=== PATIENT | female | born 1995 | race Caucasian/White ===

== ENCOUNTER 2017-04-23 09:36 | Emergency (ER) | payer BC, OTHER ==
[~2017-04-23] VITALS: Ht 165.1 cm; Wt 90.7 kg
[~2017-04-23 09:36] MED LIST: CLEOCIN HCL300 MG PO; GUAIFENESIN-CO118 ML PO; MUCINEX1200 MG PO; NORCO 5-325 TA1 EACH PO; PENICILLIN V P500 MG PO; TYLENOL WITH C1 EACH PO; ZOFRAN ODT4 MG PO; [UNRECOGNIZED DRUG - OTHER]
[2017-04-23] MEDS ORDERED: KETOROLAC TROME10 MG PO (12:20)
== END 2017-04-23 12:31 | disposition home or self-care (01) ==
LOC: ED 09:36
DX: R10.31 Right lower quadrant pain (principal)
CPT/HCPCS: 74177; 80053; 81001; 82150; 83690; 84703; 85025; 87088; 96374; 96375; 96376; 99284; J1170; J2405; Q9967

== ENCOUNTER 2017-04-23 18:54 | Observation (INO) | payer BC, OTHER ==
[~2017-04-23] VITALS: Ht 165.1 cm; Wt 90.7 kg
[~2017-04-23 18:54] MED LIST changes: +KETOROLAC TROME10 MG PO
--- NOTE | 2017-04-24 00:39 | NUR ---
REPORT RECEIVED FROM JAMSE XAVIER. PT ARRIVED TO FLOOR VIA STRETCHER, WAS ABLE TO AMBULATE TO BED. ASSESSMENT COMPLETED. ALERT/ORIENTED, REPORTS 8/10 PAIN IN RLQ, PRN TORADOL GIVEN. LUNGS CLEAR, RA. HR REGULAR. BOWEL TONES ACTIVE ON THE LEFT SIDE, MORE HYPOACTIVE ON THE RIGHT SIDE, RIGHT SIDE IS TENDER UPON PALPATION. DENIES NAUSEA AT THIS TIME. SKIN IS INTACT. IV PATENT, D5LR INFUSING AT 85 ML/HR. PT EDUCATED ON USE OF CALL LIGHT. PT GIVEN CLEAR LIQUIDS UPON ARRIVAL, BUT BECAME NPO AT MIDNIGHT, PT AWARE. PT DENIES FURTHER REQUESTS AT THIS TIME, CALL LIGHT IS WITHIN REACH.
--- NOTE | 2017-04-24 02:56 | NUR ---
PT IS SLEEPING AT THIS TIME.
--- NOTE | 2017-04-24 05:15 | NUR ---
RECEIVED REPORT AT 0045. PT HAS BEEN SLEEPING FOR THE MOST PART OF THIS SHIFT. PT HAS ACTIVE BOWEL TONES IN ALL QUADRANTS, RUQ AND RLQ ARE TENDER TO TOUCH, ALL LOBES ARE CLEAR, OVERALL ASSESSMENT WAS WDL. DURING LAST ASSESSMENT PT HAS DENIED N/V, HER PAIN LEVEL IS TOLERABLE STATED BY PT. V/S ARE WDL. PT IS HOWEVER DUE TO VOID.
--- NOTE | 2017-04-24 07:15 | NUR ---
BEDSIDE HANDOFF REPORT RECEIVED FROM SHOE COBBLER RN. PT RESTING IN BED. PT RECENTLY RECEIVED PAIN MEDICATION, RATING PAIN 7/10 NOW. IV FLUIDS INFUSING. PT DENIES NEEDS AT THSI TIME.
--- NOTE | 2017-04-24 07:47 | NUR ---
PATIENT IN BED SLEEPING. WHITEBOARD UPDATED. PUT AM CARE ITEMS IN BATHROOM FOR WHEN PATIENT WAKES UP.
--- NOTE | 2017-04-24 08:45 | NUR ---
PT RESTING IN BED. PT STATES "PAIN IS NOT THAT BAD". PT ON ROOM AIR, O2 SATS 98%, LUNG SOUNDS CLEAR. PT NPO, DENIES NAUSEA, BOWEL TONES ACTIVE. IV FLUIDS INFUSING AT 85 ML/HR. SCDS IN PLACE. PT DENIES NEEDS AT THIS TIME.
--- NOTE | 2017-04-24 11:46 | NUR ---
PATIENT DOING WELL. IN BED
--- NOTE | 2017-04-24 12:44 | NUR ---
PATIENT DOES NOT WANT TO SHOWER YET, FEELS TOO WEAK TO SHOWER.
--- NOTE | 2017-04-24 12:55 | NUR ---
PATIENT WAS SURGICALY WIPED DOWN FOR SURGERY. LINEN CHANGED
--- NOTE | 2017-04-24 13:03 | NUR ---
PT TO OR. ACCOMPANIED BY MOTHER.
--- NOTE | 2017-04-24 14:30 | NUR ---
04/24/17 1430 Wanda Barnes REPORT FROM COSTUME DRAPER.
--- NOTE | 2017-04-24 15:45 | NUR ---
PATIENT BACK FROM SURGERY. VERY SLEEPY.
--- NOTE | 2017-04-24 15:58 | NUR ---
PT RECEIVED FROM PACU. PT TRANSFERED TO BED. PT COMPLAINT OF PAIN, RATING PAIN 9/10, GIVEN 4MG IV MORPHINE. PT COMPLAINT OF NAUSEA, GIVEN 4MG IV ZOFRAN. PT ON ROOM AIR, LUNG SOUNDS CLEAR. BOWEL TONES HYPOACTIVE. ABD WITH LAP SITES X3, SMALL AMOUNT OF DRAINAGE FROM UMBILICUS, STERI STRIPS IN PLACE. IV FLUIDS INFUSING. PT DENIES OTHER NEEDS AT THIS TIME. FAMILY AT BEDSIDE.
--- NOTE | 2017-04-24 16:43 | NUR ---
PT RESTING IN BED. PT COMPLAINT OF PAIN, RATING PAIN 10/10, PT GIVEN 1 TAB PERCOCET. PT GIVEN SOUP, CRACKERS AND PUDDING. EDUCATED ON SIDE EFFECTS OF PERCOCET. ABD DRAINAGE UNCHANGED. PT DENIES OTHER NEEDS AT THIS TIME. FAMILY AT BEDSIDE.
--- NOTE | 2017-04-24 17:15 | NUR ---
PT ASSISTED TO BATHROOM, VOIDED. PT GOWN CHANGED. PT STATES PAIN IS IMPROVING, RATING PAIN 6/10. PT DENIES NAUSEA, TOLERATING REGULAR DIET. IV FLUIDS INFUSING. PT ON ROOM AIR. NO CHANGE IN DRAINAGE TO UMBILICAL SITE. PT DENIES NEEDS AT THIS TIME. FAMILY AT BEDSIDE.
--- NOTE | 2017-04-24 17:56 | NUR ---
PT WENT TO OR FOR LAPAROTOMY AND LAP APPY, RECEIVED BACK AT 1530. PT ON ROOM AIR, LUNG SOUNDS CLEAR. PT WITH LAP SITES X3, SMALL AMOUNT OF SEROSANG DRAINAGE FROM UMBILICUS, BOWEL TONES HYPOACTIVE. PT WITH NAUSEA, GIVEN 4 MG IV ZOFRAN X1, NOW TOLERATING REGULAR DIET. PT GIVEN 1 TAB PERCOCET, GOOD PAIN RELIEF. IV FLUIDS INFUSING AT 85 ML/HR. PT VOIDING QS.
--- NOTE | 2017-04-24 20:00 | NUR ---
RECEIVED REPORT AT 1900. FOUND PT IN BED WITH BOYFRIEND AT BEDSIDE. PT DENIED PAIN AND N/V AT THAT TIME.
--- NOTE | 2017-04-24 22:00 | NUR ---
V/S ARE WDL, ALL QUADRANTS HAVE NORMAL BOWEL TONES, PT IS PASSING GAS. PAIN IN WELL CONTROLLED WITH PRN PAIN MEDS AVAILABLE. INCISIONS HAVE DRIED BLOOD ON TAPE, UMBILICAL LAP SITED NEEDED A GAUZE AND PRESSURE TAPE OVER IT DUE TO SOME BLEEDING. I&O ARE ADEQUATE. ALL LOBES ARE CLEAR. PT IS WALKING. NO NEW ISSUES NOTED.
--- NOTE | 2017-04-25 00:34 | NUR ---
PT IS SLEEPING AT THIS TIME.
--- NOTE | 2017-04-25 02:45 | NUR ---
PT RECEIVED MORPHINE IV 4MG X2 SO FAR. PAIN IS WELL CONTROLLED WITH PRN PAIN MEDS AVAILABLE. PT IS PASSING GAS. ALL BOWELTONES ARE NORMALLY ACTIVE. PT IS SLEEPING AGAIN AT THIS TIME.
--- NOTE | 2017-04-25 05:48 | NUR ---
PT REPORTED 9/10 ABDOMINAL PAIN, 2 TABS PERCOCET ADMINISTERED WITH SOME CRACKERS. PT DENIES FURTHER REQUESTS AT THIS TIME. CALL LIGHT IS WITHIN REACH.
--- NOTE | 2017-04-25 05:51 | NUR ---
AT START OF SHIFT UMBILICAL LAP SITED NEEDED A DRESSING CHANGE DUE TO SOME BLEEDING. BOWEL SOUNDS ARE ACTIVE IN ALL QUADRANTS. PT IS NOW PASSING GAS. i&O IS WDL, V/S ARE WDL, PT DENIES N/V. PAIN WAS WELL CONTROLLED WITH PRN IV AND PO PAIN MEDS. PT SO FAR HAS TOLERATED A FULL LIQUID DIET. PT HAS BEEN AMBULATING IN ROOM.
--- NOTE | 2017-04-25 07:30 | NUR ---
REPORT RECEIVED FROM WILL RAMIREZ. PATIENT IS SLEEPING, RESPIRATIONS EVEN UNLABORED. IV IN THE RIGHT ARM CDI NO REDDNESS OR SWELLING NOTED. PULSE OX REMAIN ON O2 SAT ON RA 97%
--- NOTE | 2017-04-25 08:24 | NUR ---
PT AWAKE IN BED. FRESH ICE WATER. EMPTYED GARBAGE. ORDERED BREAKFAST.
--- NOTE | 2017-04-25 09:00 | NUR ---
PATIENT RESTING IN BED, SHE STATES THAT SHE DIDN'T SLEEP WELL LAST NIGHT. PATIENT HAS NO C/O PAIN AT THIS TIME. SHE IS ALERT AND ORIENTED. REGULAR BREAKFAST ORDERED FOR HER AND PATIENT DENIES OTHER NEEDS. LAP SITES CDI, UMBILICAL SITE WAS REINFORCED LAST NIGHT BY THE NIGHT NURSE DUE TO DRAINAGE, NO DRAINAGE NOTED AT THIS TIME.
--- NOTE | 2017-04-25 09:40 | NUR ---
PATIENT SAT UP IN BED TO EAT AND PAIN WITH HICCUPS WENT UP TO A 9/10 PATIENT GIVEN 2 PERCOCET PO FOR PAIN COVERAGE.
--- NOTE | 2017-04-25 09:41 | NUR ---
IV SALINE LOCKED AT THIS TIME.
--- NOTE | 2017-04-25 11:32 | NUR ---
PATIENT C/O 02/19 ABDOMINAL PAIN, PATIENT GIVEN 30MG OF TORADOL IV AT THIS TIME.
--- NOTE | 2017-04-25 12:08 | NUR ---
PT AWAKE DOING WELL TOOK VITELS AND FRESH ICE WATER AND PILLOW.
[2017-04-25] MEDS ORDERED: MOTRIN IB200 MG PO (13:40)
[2017-04-25] MEDS ORDERED: OXYCODON-ACETA1 EAC2 PO (13:41)
--- NOTE | 2017-04-25 14:22 | NUR ---
PATIENT GIVEN D/C INSTRUCTIONS, QUESTIONS ANSWERED. IV IN THE RIGHT FOREARM DC'D TIP INTACT.
--- NOTE | 2017-04-25 14:48 | NUR ---
PATIENT GIVEN 2 PERCOC[address] PO ON HER WAY OUT FOR PAIN COVERAGE ON THE WAY HOME.
--- NOTE | 2017-05-15 07:48 | OR ---
[facility] [address], [place] [address] Signed DATE OF PROCEDURE: 04/24/17 PREOPERATIVE DIAGNOSIS Persistent acute right lower abdominal pain. Normal CT scan, pelvic ultrasound, labs. POSTOPERATIVE DIAGNOSIS Normal intraabdominal examination except for appendix with soft fecalith. PROCEDURES Complete diagnostic laparoscopy. Laparoscopic appendectomy. SURGEON: Varun Breen M.D. ANESTHESIA General endotracheal (Corine Tim CRNA) and local 20 mL of 0.25% Marcaine with Epinephrine. INDICATION This 22-year-old white woman presented to the emergency room yesterday in the morning with severe right lower abdominal pain. Her lab studies were normal. A CT scan was performed and normal. She was sent home from the ER, but presented once again later in the evening where she was found to have increasing pain and some tenderness in the right lower abdomen. Her lab studies were normal including a negative beta HCG and chem profile and CBC. She is 3 weeks since her last menstrual period initially. She is usually regular with a 4-week cycle. She was admitted and underwent active observation. Examination today showed her to have continued tenderness in the right lower abdomen without mass. Her hematocrit decreased by approximately 8 points with IV hydration and so on. She had persistent pain which she considered worse than yesterday and located in the right lower quadrant. Concern was maintained on m y part she may have a ruptured hemorrhagic ovarian cyst, and on that basis, she underwent a pelvic ultrasound, as well as transvaginal ultrasound of the pelvis showing no sign of abnormality of the ovary and no excessive fluid in the pelvis. Given her per s istent symptoms of pain and tenderness and mindful of the possibility of an evolving general surgical problem, I have recommended diagnostic laparoscopy. Appendectomy would be performed whether it appeared inflamed or not under the circumstances. She and her mother understand the risks of bleeding, infection, failure of diagnosis, missed diagnosis, need for open procedure, and other unforeseen complications and wished to proceed. Electronically Signed By: VARUN BREEN MD 05/15/17 0748 PATIENT NAME: CHARI JUAN OPERATIVE REPORT DATE OF : [birth year] PHYSICIAN: VARUN BREEN MD REPORT #: [id number] REPORT IS CONFIDENTIAL AND NOT TO BE RELEASED WITHOUT AUTHORIZATION [facility] [address], [place] [address] Signed FINDINGS There is no sign of hemoperitoneum in any way. Intraabdominal inspect ion was essentially normal. The liver and gallbladder were normal as was the stomach and pyloric area. The right colon, transverse colon was normal. The small bowel was run from the ligament of Treitz to the terminal ileum and was entirely normal without a ny sign of Meckel's diverticulum, stricture, neoplasm, or other particular problem. She had no ascites. There was no carcinomatosis. The area behind the cecum was normal as well. The appendix itself was somewhat elongated but soft, only mildly injected, a nd there was a soft fecalith in the appendix. The pelvic organs were normal, including the uterus, both tubes and ovaries. There was no sign of cystic disease there. There was no sign of endometriosis. The sigmoid colon was normal. Appendectomy was perfor med and palpation of it once excised showed a soft fecalith. The appendix was opened and photographs taken of this. Appendectomy has been performed, but no other excisions undertaken. DESCRIPTION OF PROCEDURE The patient was brought to the operating room, given a general endotracheal anesthetic. A Charles catheter was placed. Preoperative antibiotic Cefoxitin was given. Sequential compression device stockings used and heparin subcutaneously administered. After Charles catheter placement, the abdomen was prepared with a Chlorhexidine solution and draped sterilely. An infraumbilical incision was made, and using an open Kimberly cannula technique, pneumoperitoneum was achieved to the level of 14 mmHg with carbon dioxide gas. Intraabdominal inspection showed no ascit es or carcinomatosis. There is no sign of blood within the pelvis or elsewhere. Examination was undertaken sequentially, including the cecal area where the appendix was immediately delivered into the wound and was soft and not distended. There was mild in j ection but of little concern really. The terminal ileum was normal as manifest by location of the antimesenteric fat pad of Treves. Small bowel was run from the terminal ileum more proximally showing no sign of Meckel diverticulum, inflammation, stricture , or neoplasm. The gallbladder and liver appeared normal. The stomach was normal including the pylorus. There was no sign of perforated ulcer. With the table in a slight Trendelenburg position, manipulation of the sigmoid was undertaken showing no evidenc e of diverticular disease or other problem. The uterus was identified as normal. The right tube and ovary manipulated without grasping, showing normal tube and normal ovary. There was no sign of endometriosis in the rectouterine pouch of Remy or anteri or to the uterus. Left adnexal structures were ultimately identified and found to be normal as well. Mindful that her pain was in the right lower abdomen dominantly, the cecum was rotated Electronically Signed By: VARUN BREEN MD 05/15/17 0748 PATIENT NAME: CHARI JUAN OPERATIVE REPORT DATE OF : [birth year] PHYSICIAN: VARUN BREEN MD REPORT #: [id number] REPORT IS CONFIDENTIAL AND NOT TO BE RELEASED WITHOUT AUTHORIZATION [facility] [address], [place] [address] Signed and the retroperitoneum examined showing no sign of abnormality. It is recalled that her urinalysis was normal as well. Plans were made for appendectomy on the basis of her right lower abdominal pain and the findings at hand or lack thereof. The appendix was ирина vated and a window created between the appendix and the cecum, and using an Endo ALAINA stapling device, the base of the appendix was transected, flushed with the cecum. The mesentery of the appendix was similarly divided. A small amount of bleeding at the s taple line was secured with limited electrocautery applied with grasper. Irrigation was undertaken. Excess irrigation fluid was suctioned free. The appendix was extracted through the infraumbilical port site using the trocar as a sheath. It was opened on the back table. After palpation revealed a small fecalith, the mucosa was divided showing the soft fecalith within the appendiceal lumen. Excess irrigation fluid was suctioned free. The abdomen was then closed. The trocar was removed under direct visuali zation showing no sign of bleeding. The infraumbilical fascial incision reapproximated with interrupted 0 Vicryl suture. All wounds copiously irrigated with saline solution. Skin closed with interrupted 3-0 Vicryl. Marcaine 0.25%, 20 cc, was injected into the trocar sites. Steri-Strips were applied. The patient was ultimately extubated and transferred to recovery room in good condition having suffered no complications. Sponge, needle, and instrument counts were reported as correct x3. MD JAMA Oconnell/Jose Alfredo /[id number] cc: FABIAN Byrne MD Sheldon Wendler, MD Electronically Signed By: VARUN BREEN MD 05/15/17 0748 PATIENT NAME: CHARI JUAN OPERATIVE REPORT DATE OF : [birth year] PHYSICIAN: VARUN BREEN MD REPORT #: [id number] REPORT IS CONFIDENTIAL AND NOT TO BE RELEASED WITHOUT AUTHORIZATION
--- NOTE | 2017-05-15 08:27 | DS ---
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 She presented to the emergency room early in the day of April 23, 2017 with right-sided abdominal pain. She was evaluated by Dr. Massey. A CT scan of the abdomen was normal including uterus, ovaries, abdominal organs, and the appendix. She was sent home with a plan for nonsteroidal medication. She presented to the emergency room late in the d ay once again and evaluated by Dr. Sousa. She was noted to have normal vital signs, white count of 10.7, hematocrit 41.9. Chem profile was normal and urinalysis normal. Previous beta hCG was negative as well. The patient at this point had had at least 4 episodes of nausea and vomiting and increasing right-sided abdominal pain. She is admitted for further evaluation and care. PERTINENT PHYSICAL EXAMINATION GENERAL: An obese white woman who did not look systemically toxic. HEENT: Mucous membranes were moist. NECK: Trachea midline. CHEST: Clear. HEART: Regular without murmur. ABDOMEN: Obese, but soft. Rovsing sign was negative. She did have some mild tenderness of the right mid to lower abdomen. There is no actual mass. EXTREMITIES: No clubbing, cyanosis, or edema. HOSPITAL COURSE She was admitted for further active monitoring. By morning the following day, she had increasing right lower abdominal pain, much [facility]. No actual nausea or vomiting. No systemic toxicity. Of note, her he matocrit at 2000 hours on April 23 was 41.9, by the morning it was 33.5. Though there was a paucity of findings on her CT scan, considerations may by me that this may represent a ruptured ovarian hemorrhagic cyst. On that basis, a pelvic ultrasound including transvaginal ultrasound was obtained showing no sign of excessive fluid in the pelvis and both ovaries and tubes normal. Given her persistent and worsening tenderness and pain, laparoscopic evaluation was deemed appropriate. The possibility of a Meckel's diverticulitis or evolving appendicitis or other problem was reviewed with her. At operation, she was found to have normal intraabdominal inspection throughout. The appendix itself was somewhat the elongated and not tensed and distended and inflamed particularly and there was no associated purulence. On the other hand, the appendix did Electronically Signed By: VARUN BREEN MD 05/15/17 0827 PATIENT NAME: CHARI JUAN DISCHARGE SUMMARY DATE OF : [birth year] PHYSICIAN: VARUN BREEN MD REPORT #: [id number] REPORT IS CONFIDENTIAL AND NOT TO BE RELEASED WITHOUT AUTHORIZATION [facility] [address], [place] [address] Signed have mild injection and appendectomy was performed as it would have been whether it was normal or abnormal. The appendix on palpation once excised did show a soft fecalith within its lumen. Of note, the terminal ileum was normal, both left and right ovaries, and tubes and uterus were normal. There was no evidence of endometriosis. The gallbladder was normal overall as was the liver and the area of the pylorus of the stomach. Small bowel from beginning to end was normal without sign of inflammatory lesion, stricture, or diverticulum. Postoperatively, she did quite well. She, soon after operation, was able to tolerate oral intake. By the following morning, she is noted to have resolution of her right lower abdominal pain. She is tolerating a regular diet and wishes to be discharged. DISCHARGE MEDICATIONS Will include Percocet 7.5/325 one to two p.o. q.4 hours p.r.n. pain, #20, no refill. Ibuprofen 600 mg p.o. q.6 hours as needed for pain. #30. FOLLOWUP PLAN She is to return to see me in approximately a month. She wishes to return to work soon if possible. Given the nature of her work, I think she may be ready within a week per her request. Paperwork was written to that effect. She is carefully advise that if she should need to lift more than 20 pounds, she should wait at least 2 weeks and also not to take any opiate medication driving or at work or on the way to work in any way. DISCHARGE DIAGNOSIS Acute right lower abdominal pain with relatively normal appearing laparoscopy, mild injection of the appendix, and once excised pain-free. Status post laparoscopy with laparoscopic appendectomy. FOLLOWUP PLAN She is returning to see me in approximately a month. She will call for an appointment. Return to work slip was given to the patient. MD JAMA Oconnell/Jose Alfredo Electronically Signed By: VARUN BREEN MD 05/15/17 0827 PATIENT NAME: CHARI JUAN DISCHARGE SUMMARY DATE OF : [birth year] PHYSICIAN: VARUN BREEN MD REPORT #: [id number] REPORT IS CONFIDENTIAL AND NOT TO BE RELEASED WITHOUT AUTHORIZATION [address] [place], [place] [address] Signed /[id number] cc: MD Abelardo Helm MD Lisa Johnson, FNP Electronically Signed By: VARUN BREEN MD 05/15/17 0827 PATIENT NAME: CHARI JUAN DISCHARGE SUMMARY DATE OF : [birth year] PHYSICIAN: VARUN BREEN MD REPORT #: [id number] REPORT IS CONFIDENTIAL AND NOT TO BE RELEASED WITHOUT AUTHORIZATION
--- NOTE | 2017-05-15 08:27 | HP ---
[facility] [address], [place] [address] Signed DATE OF ADMISSION: 04/23/17 REASON FOR ADMISSION Persistent right lower abdominal and right mid abdominal pain. HISTORY OF PRESENT ILLNESS This 22-year-old white woman, works at the [employer]. She has a boyfriend and went to the alternative school in the [employer] several years ago. She presented to the emergency room earlier in the day with right-sided abdominal pain mostly in the lower abdomen. This prompted a CT scan under the direction of Dr. oRdgers. The CT scan of the abdomen was normal including the uterus, ovaries, abdominal organs including the appendix. The patient was sent home with nonsteroidal medication. She is approximately 3 weeks since her menstrual period and usually is regular on a monthly basis. She presented once again to the emergency room this evening, evaluated by Dr. Sousa. She continued to have normal vital signs. Lab studies showed a white count of 10.7, hematocrit of 41.9. Chem profile was normal and urinalysis normal. Additional imaging was not undertaken. The patient's pain is the same as it was, not worse, not better. She has had at least 4 episodes of nausea and vomiting, however. REVIEW OF SYSTEMS She denies any blood per rectum or hematemesis. She has had some back pain on the right side mostly in the lower abdomen, not in the upper part. SOCIAL HISTORY She does not smoke or drink alcohol. She does no illicit drugs. She works at the [employer] as described. She has a boyfriend. They do not live together. PHYSICAL EXAMINATION GENERAL: An obese white woman who does not look systemically toxic. HEENT: Mucous membranes are reasonably moist. Trachea is midline. CHEST: Clear. HEART: Regular without murmur. ABDOMEN: Obese, but soft. Rovsing sign is negative. She does have some mild tenderness to the right mid and lower abdomen. There is no actual mass that I can tell. EXTREMITIES: No clubbing, cyanosis, or edema. LABORATORY DATA Lab studies were as described previously including a white count of 10.7. I have Electronically Signed By: VARUN BREEN MD 05/15/17 0827 PATIENT NAME: CHARI JUAN HISTORY AND PHYSICAL DATE OF : [birth year] PHYSICIAN: VARUN BREEN MD REPORT #: [id number] REPORT IS CONFIDENTIAL AND NOT TO BE RELEASED WITHOUT AUTHORIZATION [facility] [address], [place] [address] scan performed earlier in the day, confirming the appendix which has air within it without sign of thickening or fluid changes, no sign of inflammatory process. Gallbladder itself on the CT scan looks thickened, but contracted. ASSESSMENT It is uncertain the source of her problem. She denies similar pain when menstrual period is approaching. She did not have generalized peritonitis, but mild tenderness. The possibility of appendicitis in evolution or biliary disease or even some other unknown problem remains a consideration. As she has presented to the emergency room twice in the same day, I think it would be best to actively observe her with admission to the hospital with intravenous fluids, parenteral pain control, anticipating further imaging depending on the evolution of her symptoms. She may simply have a viral enteritis, but she has no associated diarrhea or other similar problem. Given her age group, the possibility of inflammatory bowel disease is always considered; however, I see no segment of bowel in particular the terminal ilium that shows thickening fluid collection or other problem. She agrees with this approach. I have reviewed this with Dr. Sousa as well. MD JAMA Oconnell/Roselinel /[id number] cc: FABIAN Byrne Electronically Signed By: VARUN BREEN MD 05/15/17 0827 PATIENT NAME: CHARI JUAN HISTORY AND PHYSICAL DATE OF : [birth year] PHYSICIAN: VARUN BREEN MD REPORT #: [id number] REPORT IS CONFIDENTIAL AND NOT TO BE RELEASED WITHOUT AUTHORIZATION
== END 2017-04-25 14:46 | disposition home or self-care (01) ==
LOC: ED 18:54 → MS 18:55 → ED 23:17 → MS 04-25 14:46
PROVIDERS: ADMIT Surgery
PROC: 0DTJ4ZZ Resection of Appendix, Percutaneous Endoscopic Approach (ICD-10-PCS; principal; 2017-04-24 12:40)
DX: R10.31 Right lower quadrant pain (principal); K38.1 Appendicular concretions; E66.9 Obesity, unspecified; Z68.33 Body mass index [BMI] 33.0-33.9, adult
CPT/HCPCS: 00840; 76830; 76856; 80053; 81001; 83690; 85025; 94762; 96361; 96372; 96374; 96375; 96376; 99285; G0378; J0330; J0694; J1100; J1170; J1644; J1885; J2250; J2270; J2405; J2704; J3010; J7030; J7120

== ENCOUNTER 2017-06-16 17:41 | Emergency (ER) | payer BC ==
[~2017-06-16] VITALS: Ht 165.1 cm; Wt 86.2 kg
[~2017-06-16 17:41] MED LIST changes: +MOTRIN IB200 MG PO; +OXYCODON-ACETA1 EAC2 PO
[2017-06-16] MEDS ORDERED: ZOFRAN ODT4 MG PO (19:28)
== END 2017-06-16 19:54 | disposition home or self-care (01) ==
LOC: ED 17:41
DX: A08.4 Viral intestinal infection, unspecified (principal); Z90.49 Acquired absence of other specified parts of digestive tract
CPT/HCPCS: 80053; 81001; 84703; 85025; 87077; 87088; 87186; 96361; 96374; 99283; J2405; J7040

== ENCOUNTER 2017-11-17 07:18 | Emergency (ER) | payer OTHER ==
[~2017-11-17] VITALS: Ht 165.1 cm; Wt 86.2 kg
[2017-11-17] MEDS ORDERED: PRENATABS FA T1 EACH PO (07:41)
[2017-11-17] MEDS ORDERED: COMPRO25 MG PR (09:37)
[2017-11-17] MEDS ORDERED: PROCHLORPERAZIN10 MG PO (09:37)
--- NOTE | 2017-11-17 20:31 | EKG ---
[facility] [address] [facility] [place] [address] Signed Normal sinus rhythm Normal ECG No previous ECGs available Confirmed by SEJAL KTOHARI MD ([id number]) on 11/17/2017 8:31:32 PM Electronically Signed By: SEJAL KOTHARI MD 11/17/172030 PATIENT NAME: CHARI JUAN Electrocardiogram DATE OF : [birth year] PHYSICIAN: SEJAL KOTHARI MD REPORT #: [id number] REPORT IS CONFIDENTIAL AND NOT TO BE RELEASED WITHOUT AUTHORIZATION
== END 2017-11-17 09:59 | disposition home or self-care (01) ==
LOC: ED 07:18
DX: O99.89 Other specified diseases and conditions complicating pregnancy, childbirth and the puerperium (principal); R55 Syncope and collapse; R51 Headache; O21.9 Vomiting of pregnancy, unspecified; Z79.899 Other long term (current) drug therapy; Z3A.11 11 weeks gestation of pregnancy
CPT/HCPCS: 70450; 80053; 85025; 93005; 93010; 96374; 96375; 99284; J0780; J1200; J7120

== ENCOUNTER 2017-11-18 23:49 | Emergency (ER) | payer OTHER ==
[~2017-11-18] VITALS: Ht 165.1 cm; Wt 86.2 kg
[~2017-11-18 23:49] MED LIST changes: +COMPRO25 MG PR; +PRENATABS FA T1 EACH PO; +PROCHLORPERAZIN10 MG PO
[2017-11-20] MEDS ORDERED: PEPCID40 MG PO (03:23)
== END 2017-11-19 02:53 | disposition home or self-care (01) ==
LOC: ED 23:49
DX: O20.9 Hemorrhage in early pregnancy, unspecified (principal); Z3A.12 12 weeks gestation of pregnancy
CPT/HCPCS: 76801; 76817; 86900; 86901; 96372; 99284; J2790

== ENCOUNTER 2017-11-20 01:15 | Emergency (ER) | payer OTHER ==
[~2017-11-20] VITALS: Ht 165.1 cm; Wt 86.2 kg
[2017-11-20] MEDS ORDERED: PEPCID40 MG PO (03:23)
== END 2017-11-20 03:34 | disposition home or self-care (01) ==
LOC: ED 01:15
DX: O99.611 Diseases of the digestive system complicating pregnancy, first trimester (principal); K30 Functional dyspepsia; Z3A.12 12 weeks gestation of pregnancy; Z79.899 Other long term (current) drug therapy
CPT/HCPCS: 76705; 80053; 81001; 83690; 85025; 96374; 96375; 99284; J2270

== ENCOUNTER 2017-12-27 19:59 | Emergency (ER) | payer OTHER ==
[~2017-12-27] VITALS: Ht 165.1 cm; Wt 90.7 kg
[~2017-12-27 19:59] MED LIST changes: +PEPCID40 MG PO
== END 2017-12-27 23:05 | disposition home or self-care (01) ==
LOC: ED 19:59
DX: O99.89 Other specified diseases and conditions complicating pregnancy, childbirth and the puerperium (principal); R10.9 Unspecified abdominal pain; Z90.49 Acquired absence of other specified parts of digestive tract; Z79.899 Other long term (current) drug therapy; Z3A.17 17 weeks gestation of pregnancy
CPT/HCPCS: 76815; 99284

== ENCOUNTER 2020-04-20 21:23 | Emergency (ER) | payer OTHER ==
[~2020-04-20] VITALS: Ht 167.6 cm; Wt 106.6 kg
[~2020-04-20 21:23] MED LIST changes: +ACID CONTROL150 MG PO
--- OUTSIDE RECORDS SUMMARY | 2020-04-20 21:26 | XMS ---
PreManage Notification: CHARI JUAN Security Hat Sprayer Events No recent Security Events currently on file CRITERIA MET - Group Notification CARE PROVIDERS There are no care providers on record at this time. Shyann has no Care Guidelines for this patient. Care History Medical/Surgical 12/28/2017 [facility] - Per Dr Suazo office- patient has been told to contact [facility] with any complications due to . - Dr Suazo office is now notified of ED utilization and will be seeing patient 12/28/17 and discussing the ED utilization and how to contact the [facility] for future concerns. Care Recommendation: This patient has had 5 or more Emergency Department visits in the last 12 months.\T\nbsp; Patient requires education on the scope and purpose of the ED as an acute care provider not a Primary Care Provider and should not be utilized for chronic conditions.\T\nbsp; If patient returns to ED please contact Community Health WorkerSunitha at [phone]. These are guidelines and the provider should exercise clinical judgment when providing care. E.D. VISIT COUNT (12 MO.) 1 [facility] TOTAL 1 NOTE: Visits indicate total known visits. ED/UCC VISIT TRACKING (12 MO.) 04/20/2020 21:24 [facility] TYPE: Emergency COMPLAINT: - R ANKLE INJURY INPATIENT VISIT TRACKING (12 MO.) No inpatient visits to display in this time frame [email or web address]
== END 2020-04-20 22:41 | disposition home or self-care (01) ==
LOC: ED 21:23
DX: S93.401A Sprain of unspecified ligament of right ankle, initial encounter (principal); X50.9XXA Other and unspecified overexertion or strenuous movements or postures, initial encounter; Y99.0 Civilian activity done for income or pay
CPT/HCPCS: 73610; 99283-25; A9270

== ENCOUNTER 2021-06-18 10:05 | Emergency (ER) | payer OTHER ==
[~2021-06-18] VITALS: Ht 167.6 cm; Wt 99.8 kg
--- OUTSIDE RECORDS SUMMARY | 2021-06-18 10:12 | XMS ---
PreManage Notification: CHARI JUAN Security L D Rn Events No recent Security Events currently on file CRITERIA MET - Group Notification CARE PROVIDERS ANNE SUAZO Obstetrics \T\ Gynecology 04/23/2020-Current PHONE: Unknown Shyann has no Care Guidelines for this patient. Care History Medical/Surgical 12/28/2017 [facility] - Per Dr Suazo office- patient has been told to contact [facility] with any complications due to . - Dr Suazo office is now notified of ED utilization and will be seeing patient 12/28/17 and discussing the ED utilization and how to contact the [facility] for future concerns. Care Recommendation: This patient has had 5 or more Emergency Department visits in the last 12 months.\T\nbsp; Patient requires education on the scope and purpose of the ED as an acute care provider not a Primary Care Provider and should not be utilized for chronic conditions.\T\nbsp; If patient returns to ED please contact Community Health WorkerSunitha at [phone]. These are guidelines and the provider should exercise clinical judgment when providing care. E.D. VISIT COUNT (12 MO.) 1 [facility] TOTAL 1 NOTE: Visits indicate total known visits. ED/UCC VISIT TRACKING (12 MO.) 06/18/2021 10:05 [facility] TYPE: Emergency COMPLAINT: - LOWER BACK INJURY INPATIENT VISIT TRACKING (12 MO.) No inpatient visits to display in this time frame [email or web address]
[2021-06-18] MEDS ORDERED: CYCLOBENZAPRINE10 MG PO (11:31)
== END 2021-06-18 11:47 | disposition home or self-care (01) ==
LOC: ED 10:05
DX: S39.012A Strain of muscle, fascia and tendon of lower back, initial encounter (principal); X50.9XXA Other and unspecified overexertion or strenuous movements or postures, initial encounter
CPT/HCPCS: 96372; 99283; J1885

== ENCOUNTER 2024-04-10 00:49 | Emergency (ER) | payer OTHER ==
[~2024-04-10] VITALS: Ht 167.6 cm; Wt 109.0 kg
[~2024-04-10 00:49] MED LIST changes: +CYCLOBENZAPRINE10 MG PO
[2024-04-10] MEDS ORDERED: DEXAMETHASONE SOD PHOS 10 MG/ML VIAL IV ONE (02:00)
[2024-04-10] MEDS ORDERED: AMP/SULBACTAM SOD 3 GM in SODIUM CHLORIDE 0.9% 100 ML IV ONE (02:00)
[2024-04-10 02:26] LABS: BASOPHILS 0.3 % (0-2); EOSINOPHILS 0.6 % (0-6); HEMATOCRIT 41.9 % (35.0-50.0); LYMPHOCYTES 11.8 % (24-44); MCH 29.5 (27-36); MCHC 33.3 g/dl (30-36); MCV 88.5 fl (81-99); MONOCYTES 6.9 % (0-12); NEUTROPHILS 80.4 % (39-80); PLATELET COUNT 242 K/uL (140-440); RBC 4.73 M/ul (4.3-5.7); RDW 14.6 (10.5-15.0)
[2024-04-10 02:41] LABS: ALBUMIN 3.5 g/dL (3.4-5.0); ALBUMIN/GLOBULIN RATIO 0.81 (1.1-2.4); ANION GAP 14.1 (7-21); BILIRUBIN, TOTAL 0.3 ng/dL (0.2-1.0); BUN/CREATININE RATIO 7.14 (6.0-28.6); CALCIUM 9.1 mg/dL (8.5-10.1); CREATININE, SERUM 0.84 mg/dL (0.55-1.02); POTASSIUM 3.1 mmol/L (3.5-5.1); PROTEIN, TOTAL 7.8 g/dL (6.4-8.2)
[2024-04-10 02:46] LABS: LACTIC ACID, BLOOD 0.9 mmol/L (0.4-2.0)
[2024-04-10] MEDS ORDERED: LACTATED RINGER'S 1,000 ML IV ONE (03:00)
[2024-04-10] MEDS ORDERED: AMP/SULBACTAM SOD 3 GM VIAL IV ONE (03:28)
[2024-04-10] MEDS ORDERED: LIDOCAINE HCL 4% 50 ML BTL TOP ONE (07:00)
[2024-04-10] MEDS ORDERED: AMOX TR-K CLV1 EAC1 PO (07:26)
[2024-04-10] MEDS ORDERED: AMOXICILLIN/CLAVULANATE K 875 MG HOME.PACK PO ONE (07:30)
[2024-04-10 07:43] VITALS: BP 134/73
== END 2024-04-10 07:43 | disposition home or self-care (01) ==
LOC: ED 00:49
PROVIDERS: Internal Medicine
DX: J36 Peritonsillar abscess (principal)
CPT/HCPCS: 36415; 42700; 70491; 80053; 83605; 85025; 87040; 87651; 99283-25; J0295; J1100; J7121; Q9967

== ENCOUNTER 2024-09-05 08:25 | Emergency (ER) | payer OTHER ==
[~2024-09-05] VITALS: Ht 167.6 cm; Wt 104.8 kg
[~2024-09-05 08:25] MED LIST changes: +AMOX TR-K CLV1 EAC1 PO
[2024-09-05] MEDS ORDERED: LACTATED RINGER'S 1,000 ML IV ONE (08:45)
[2024-09-05] MEDS ORDERED: ACETAMINOPHEN 325 MG TAB PO ONE (08:45)
[2024-09-05 08:48] LABS: BASOPHILS 0.5 % (0-2); EOSINOPHILS 1.2 % (0-6); HEMATOCRIT 40.6 % (35.0-50.0); HEMOGLOBIN 13.8 g/dL (12.0-18.0); LYMPHOCYTES 26.6 % (24-44); MCH 29.3 (27-36); MCV 86.2 fl (81-99); MONOCYTES 7.6 % (0-12); NEUTROPHILS 64.1 % (39-80); PLATELET COUNT 264 K/uL (140-440); RBC 4.71 M/ul (4.3-5.7); RDW 14.4 (10.5-15.0)
[2024-09-05] MEDS ORDERED: METOCLOPRAMIDE HCL 10 MG/2 ML SDV IV ONE (09:15)
[2024-09-05] MEDS ORDERED: fentaNYL citrate 100 MCG/2 ML VIAL IV PRN (09:15)
[2024-09-05 09:17] LABS: ALBUMIN 3.2 g/dL (3.4-5.0); ALBUMIN/GLOBULIN RATIO 0.82 (1.1-2.4); ALCOHOL, MEDICAL <3 ng/dL (<3); ALKALINE PHOSPHATASE 87 U/L (46-116); ALT (SGPT) 41 U/L (14-59); ANION GAP 12.6 (7-21); AST (SGOT) 17 U/L (15-37); BILIRUBIN, TOTAL 0.2 mg/dL (0.2-1.0); BUN/CREATININE RATIO 16.43 (6.0-28.6); CALCIUM 8.8 mg/dL (8.5-10.1); CARBON DIOXIDE 27 mmol/L (21-32); CHLORIDE 106 mmol/L (98-107); CREATININE, SERUM 0.73 mg/dL (0.55-1.02); GLOMERULAR FILTRATION RATE,EST 116 mL/min (>60); POTASSIUM 3.6 mmol/L (3.5-5.1); PROTEIN, TOTAL 7.1 g/dL (6.4-8.2); UREA NITROGEN 12 mg/dL (7-18)
[2024-09-05] MEDS ORDERED: HYDROCODON-ACE1 EA10 PO (09:36)
[2024-09-05] MEDS ORDERED: LIDODERM1 EACH TOP (09:36)
[2024-09-05] MEDS ORDERED: ONDANSETRON ODT8 MG PO (09:36)
[2024-09-05 10:08] VITALS: BP 122/80
[2024-09-05] MEDS ORDERED: HYDROCODONE BIT/ACETAMINOPHEN 5/325 MG 1 TAB HOME.PACK PO ONE (12:30)
== END 2024-09-05 10:08 | disposition home or self-care (01) ==
LOC: ED 08:25
PROVIDERS: Emergency Medicine
DX: M25.512 Pain in left shoulder (principal); R10.814 Left lower quadrant abdominal tenderness; V49.49XA Driver injured in collision with other motor vehicles in traffic accident, initial encounter; Z79.899 Other long term (current) drug therapy
CPT/HCPCS: 36415; 70450; 71260; 72125; 74177; 80053; 83690; 84702; 85025; 99284-25; A9270; G0480; J2765; J3010; J7121; Q9967